=== PATIENT | female | born 1965 | race Caucasian/White ===

== ENCOUNTER → 2022-10-26 09:34 | Outpatient (CLI) | payer MEDICARE, MEDICAID, SELFPAY ==
[2022-10-26 15:39] LABS: Alanine Aminotransferase 316 U/L (12-78); Albumin Level 3.9 g/dl (3.5-5.0); Albumin/Globulin Ratio 1.6 (1.1-1.8); Alkaline Phosphatase 181 U/L (38-126); Anion Gap 7.2 mEq/L (5-15); Aspartate Amino Transferase 219 U/L (14-36); Bilirubin,Total 0.4 mg/dl (0.2-1.3); Blood Urea Nitrogen 6 mg/dl (7-17); Calcium 8.4 mg/dl (8.4-10.2); Carbon Dioxide 31 mmol/L (22.0-30.0); Chloride 105 mmol/L (98-107); Chol/HDL Ratio 3.1 (1-3.5); Cholesterol 140 mg/dl (140-200); Estimated Glomerular Filt Rate 129 ml/min (>60); GFR (African American) 156 ML/MIN (>60); Globulin 2.5 g/dL (1.3-3.2); Glucose 83 mg/dl (74-100); HDL Cholesterol 45 mg/dl (40-60); Potassium 4.2 mmoL/L (3.5-5.1); Sodium 139 mmol/L (136-145); Total Protein,Serum 6.4 g/dl (6.3-8.2); Triglycerides 125 mg/dl (30-150); VLDL Cholesterol 25 mg/dL (0-40)
[2022-10-26 15:50] LABS: Direct LDL Cholesterol 74.03 mg/dL (100-129)
[2022-10-26 16:10] LABS: Thyroid Stimulating Hormone 4.08 uIU/mL (0.465-4.68)
== END ==
PROVIDERS: PCP Family Medicine; Visit Provider Family Medicine
DX: F41.9 Anxiety disorder, unspecified; E66.01 Morbid (severe) obesity due to excess calories; Z68.42 Body mass index [BMI] 45.0-49.9, adult
CPT/HCPCS: 80053; 80061; 84443

== ENCOUNTER → 2022-11-04 07:55 | Outpatient (CLI) | payer MEDICARE, MEDICAID, SELFPAY ==
--- NOTE | 2022-11-04 07:56 | US_ITS ---
FINAL REPORT CLINICAL HISTORY: Elevated liver enzymes COMPARISON: None FINDINGS: Sonographic images of the right upper quadrant were obtained. The pancreas is partially obscured. There is increased hepatic echogenicity consistent with mild fatty infiltration. Hepatic veins are patent. Portal vein is patent with normal direction of flow and measures 12 mm in diameter. The gallbladder is surgically absent There is no evidence of biliary ductal dilatation.The common duct measures 3 mm. Limited images of the right kidney are unremarkable, measures 8.9 cm. IMPRESSION: Mild fatty liver. Reviewed, Interpreted and Dictated by Maciej Thomas III, MD Transcribed by Radha Bee Authenticated and [facility]
== END ==
PROVIDERS: PCP Family Medicine; Visit Provider Family Medicine
DX: R74.8 Abnormal levels of other serum enzymes (principal)
CPT/HCPCS: 76705

== ENCOUNTER → 2022-11-13 14:49 | Outpatient (CLI) | payer MEDICARE, MEDICAID, SELFPAY ==
[2022-11-15 08:10] LABS: HBsAg Screen Negative (Negative); Hep A Ab, IGM Negative (Negative); Hep B Core Ab, IgM Negative (Negative)
== END ==
PROVIDERS: PCP Family Medicine; Visit Provider Family Medicine
DX: R94.5 Abnormal results of liver function studies (principal)
CPT/HCPCS: 80074

== ENCOUNTER → 2023-02-12 23:15 | Outpatient (CLI) | payer MEDICARE, MEDICAID, SELFPAY ==
[2023-02-12 18:34] LABS: Basophils % 0.2 % (0.1-2.0); Eosinophils # 0.1 K/mm3 (0.0-0.4); Eosinophils % 1.2 % (0.1-12.0); Hematocrit 40.9 % (37.0-47.0); Lymphocytes # 1.4 K/mm3 (0.7-4.5); Lymphocytes % 22.6 % (10-50); Mean Corpuscular HGB Conc 31.8 g/dL (31.8-35.4); Mean Corpuscular Hemoglobin 29.4 pg (27.0-31.2); Mean Corpuscular Volume 92.3 fl (81-99); Mean Platelet Volume 8.6 fl (7.4-10.4); Monocytes # 0.5 K/mm3 (0.1-1.0); Monocytes % 7.6 % (1.7-9.3); Neutrophils # 4.2 K/mm3 (1.8-7.8); Neutrophils % 68.4 % (37.0-80.0); Platelet Count 239 K/mm3 (142-424); Red Blood Count 4.43 M/mm3 (4.20-5.40); Red Cell Distribution Width 14.4 % (11.5-17.5); White Blood Count 6.2 K/mm3 (4.8-10.8)
[2023-02-12 19:07] LABS: Alanine Aminotransferase 21 U/L (12-78); Albumin Level 4.1 g/dl (3.5-5.0); Albumin/Globulin Ratio 1.6 (1.1-1.8); Alkaline Phosphatase 111 U/L (38-126); Anion Gap 11.6 mEq/L (5-15); Aspartate Amino Transferase 29 U/L (14-36); Bilirubin,Total 0.2 mg/dl (0.2-1.3); Blood Urea Nitrogen 12 mg/dl (7-17); Carbon Dioxide 30 mmol/L (22.0-30.0); Chloride 106 mmol/L (98-107); Chol/HDL Ratio 2.8 (1-3.5); Cholesterol 145 mg/dl (140-200); Estimated Glomerular Filt Rate 104 ml/min (>60); GFR (African American) 126 ML/MIN (>60); Globulin 2.6 g/dL (1.3-3.2); Glucose 108 mg/dl (74-100); HDL Cholesterol 51 mg/dl (40-60); Potassium 3.6 mmoL/L (3.5-5.1); Sodium 144 mmol/L (136-145); Total Protein,Serum 6.7 g/dl (6.3-8.2); Triglycerides 132 mg/dl (30-150); VLDL Cholesterol 26 mg/dL (0-40)
[2023-02-12 19:18] LABS: Direct LDL Cholesterol 70.55 mg/dL (100-129)
[2023-02-12 19:53] LABS: Hemoglobin A1C 5.2 % (4.0-6.0)
== END ==
PROVIDERS: PCP Family Medicine; Visit Provider Family Medicine
DX: E11.9 Type 2 diabetes mellitus without complications (principal); F32.A Depression, unspecified; G89.29 Other chronic pain; M54.6 Pain in thoracic spine; E03.9 Hypothyroidism, unspecified
CPT/HCPCS: 80053; 80061; 83036; 85025

== ENCOUNTER → 2023-05-31 08:14 | Outpatient (CLI) | payer MEDICARE, MEDICAID, SELFPAY ==
[2023-05-31 21:13] LABS: Thyroid Stimulating Hormone 0.16 uIU/mL (0.465-4.68)
== END ==
PROVIDERS: PCP Family Medicine; Visit Provider Family Medicine
DX: F32.A Depression, unspecified (principal); F41.9 Anxiety disorder, unspecified
CPT/HCPCS: 84443

== ENCOUNTER → 2023-06-24 23:32 | Outpatient (CLI) | payer MEDICARE, MEDICAID, SELFPAY ==
[2023-06-24 21:45] LABS: Amphetamine/Metha Screen,Urine Negative ng/ml (<1000)
[2023-06-24 21:47] LABS: Cocaine Screen,Urine Negative ng/ml (<300)
[2023-06-24 21:48] LABS: Benzodiazepines Screen,Urine Negative ng/ml (<200)
[2023-06-24 21:49] LABS: Cannabinoid Screen,Urine Positive ng/ml (<50); Phencyclidine Screen,Urine Negative ng/ml (<25)
[2023-06-24 21:50] LABS: Methadone Screen,Urine Negative ng/ml (<300)
[2023-06-24 21:51] LABS: Opiate Screen,Urine Negative ng/ml (<300)
[2023-06-24 22:03] LABS: Barbiturates Screen,Urine Negative ng/ml (<200)
== END ==
PROVIDERS: PCP Family Medicine; Visit Provider Family Medicine
DX: Z79.899 Other long term (current) drug therapy (principal)
CPT/HCPCS: 80305

== ENCOUNTER 2024-01-27 13:47 | Outpatient (CLI) | payer MEDICARE, MEDICAID, SELFPAY ==
[2024-01-27 20:04] LABS: Creatinine,Urine Random 147 mg/dL (Not Estab.)
[2024-01-27 20:11] LABS: Microalbumin/Creatinine Ratio 7.8
== END 2024-01-27 23:59 | disposition home or self-care (01) ==
LOC: LAB.DROPOF 01-28 13:48
PROVIDERS: PCP Family Medicine; Visit Provider Family Medicine
DX: Z00.00 Encounter for general adult medical examination without abnormal findings (principal)
CPT/HCPCS: 82043; 82570

== ENCOUNTER 2024-03-29 13:45 | Outpatient (CLI) | payer MEDICARE, MEDICAID, SELFPAY ==
[2024-03-29 19:02] LABS: Alanine Aminotransferase 32 U/L (12-78); Albumin Level 3.7 g/dl (3.5-5.0); Albumin/Globulin Ratio 1.4 (1.1-1.8); Alkaline Phosphatase 118 U/L (38-126); Anion Gap 5.6 mEq/L (5-15); Aspartate Amino Transferase 28 U/L (14-36); Bilirubin,Total 0.5 mg/dl (0.2-1.3); Blood Urea Nitrogen 7 mg/dl (7-17); Calcium 8.9 mg/dl (8.4-10.2); Carbon Dioxide 31 mmol/L (22.0-30.0); Chloride 107 mmol/L (98-107); Estimated Glomerular Filt Rate 103 ml/min (>60); GFR (African American) 125 ML/MIN (>60); Globulin 2.7 g/dL (1.3-3.2); Glucose 96 mg/dl (74-100); Potassium 3.6 mmoL/L (3.5-5.1); Sodium 140 mmol/L (136-145); Total Protein,Serum 6.4 g/dl (6.3-8.2)
[2024-03-29 19:31] LABS: Thyroid Stimulating Hormone < 0.02 uIU/mL (0.465-4.68)
== END 2024-03-29 23:59 | disposition home or self-care (01) ==
LOC: LAB.DROPOF 03-30 10:00
PROVIDERS: PCP Family Medicine; Visit Provider Family Medicine
DX: E03.9 Hypothyroidism, unspecified (principal); E07.9 Disorder of thyroid, unspecified
CPT/HCPCS: 80053; 84443

== ENCOUNTER 2024-08-16 14:45 | Outpatient (CLI) | payer MEDICARE, MEDICAID, SELFPAY ==
[2024-08-16 18:36] LABS: Basophils % 0.2 % (0.1-2.0); Eosinophils # 0.1 K/mm3 (0.0-0.4); Eosinophils % 1.2 % (0.1-12.0); Hematocrit 48.1 % (37.0-47.0); Hemoglobin 15.6 g/dL (12.2-16.2); Lymphocytes # 1.5 K/mm3 (0.7-4.5); Lymphocytes % 29.8 % (10-50); Mean Corpuscular HGB Conc 32.4 g/dL (31.8-35.4); Mean Corpuscular Hemoglobin 30.4 pg (27.0-31.2); Mean Corpuscular Volume 93.8 fl (81-99); Mean Platelet Volume 10.2 fl (7.4-10.4); Monocytes # 0.4 K/mm3 (0.1-1.0); Monocytes % 7.3 % (1.7-9.3); Neutrophils # 3.1 K/mm3 (1.8-7.8); Neutrophils % 61.3 % (37.0-80.0); Platelet Count 226 K/mm3 (142-424); Red Blood Count 5.13 M/mm3 (4.20-5.40); Red Cell Distribution Width 13.8 % (11.5-17.5); White Blood Count 5.1 K/mm3 (4.8-10.8)
[2024-08-16 19:25] LABS: Alanine Aminotransferase 27 U/L (12-78); Albumin Level 4.4 g/dl (3.5-5.0); Alkaline Phosphatase 113 U/L (38-126); Anion Gap 12.6 mEq/L (5-15); Aspartate Amino Transferase 33 U/L (14-36); Bilirubin,Total 0.3 mg/dl (0.2-1.3); Blood Urea Nitrogen 10 mg/dl (7-17); Calcium 9.2 mg/dl (8.4-10.2); Carbon Dioxide 31 mmol/L (22.0-30.0); Chloride 104 mmol/L (98-107); Chol/HDL Ratio 4.1 (1-3.5); Cholesterol 179 mg/dl (140-200); Estimated Glomerular Filt Rate 87 ml/min (>60); GFR (African American) 105 ML/MIN (>60); Globulin 2.2 g/dL (1.3-3.2); Glucose 82 mg/dl (74-100); HDL Cholesterol 44 mg/dl (40-60); Potassium 3.6 mmoL/L (3.5-5.1); Sodium 144 mmol/L (136-145); Total Protein,Serum 6.6 g/dl (6.3-8.2); Triglycerides 152 mg/dl (30-150); VLDL Cholesterol 30 mg/dL (0-40)
[2024-08-16 19:38] LABS: Direct LDL Cholesterol 87.08 mg/dL (100-129)
[2024-08-16 19:45] LABS: T4 (Thyroxine) 9.9 ug/dl (5.53-11.0)
[2024-08-16 19:58] LABS: Thyroid Stimulating Hormone 0.56 uIU/mL (0.465-4.68)
[2024-08-16 20:06] LABS: HIV Combo NEGATIVE (Negative)
[2024-08-16 20:18] LABS: Hepatitis C Ab Qual. W/ RFX NEGATIVE (Negative)
== END 2024-08-16 23:59 | disposition home or self-care (01) ==
LOC: LAB.DROPOF 08-17 13:29
PROVIDERS: PCP Family Medicine; Visit Provider Family Medicine
DX: E03.9 Hypothyroidism, unspecified (principal); M15.4 Erosive (osteo)arthritis; M79.671 Pain in right foot; M79.672 Pain in left foot; F32.A Depression, unspecified; F41.9 Anxiety disorder, unspecified; E66.01 Morbid (severe) obesity due to excess calories; Z68.42 Body mass index [BMI] 45.0-49.9, adult; M54.6 Pain in thoracic spine; G89.29 Other chronic pain; Z87.19 Personal history of other diseases of the digestive system; Z90.710 Acquired absence of both cervix and uterus; Z11.59 Encounter for screening for other viral diseases
CPT/HCPCS: 80053; 80061; 84436; 84443; 85025; 86803; 87389

== ENCOUNTER 2025-02-14 14:25 | Outpatient (CLI) | payer MEDICARE, MEDICAID, SELFPAY ==
[2025-02-14 20:33] LABS: Thyroid Stimulating Hormone 0.38 uIU/mL (0.465-4.68)
--- OUTSIDE RECORDS SUMMARY | 2025-02-15 12:17 | XMS_ITS | Clinical Summary ---
Author Organization [facility] [place] Address [address] [facility] [address] [place] [address] Phone Care Team Providers Care Correctional Substance Abuse Counselor Name Role Phone Vahid Pelaez MD Primary Care Provider [phone] Allergies Active Allergy Reactions Criticality Noted Date Comments Hydrocodone-Acetaminophen Nausea And Vomiting 1 08/25/2010 Medications lorazepam (ATIVAN) 1 mg tablet Take 1 mg by mouth daily. Active LEVOthyroxine 75 mcg Oral Capsule Take 125 mcg by mouth daily. Active MULTIVITAMIN/IRO N/FOLIC ACID (MULTI COMPLETE WITH IRON ORAL) Take 2 Tabs by mouth daily. Active calcium carbonate (OS-GINO) 500 mg calcium (1,250 mg) Oral Tablet Take 1 Tab by mouth 2 times daily. Active cyanocobalamin 500 mcg Oral Tablet Take 500 mcg by mouth daily. Active vits A,C,E/lutein/min erals (HEALTHY EYES ORAL) Take 1 Tab by mouth daily. Active busPIRone (BUSPAR) 15 mg Oral Tablet Take 15 mg by mouth 3 times daily. 0 Active Cholecalciferol, Vitamin D3, 25 mcg (1,000 unit) Oral Capsule Take by mouth daily. Active oxyCODONE (ROXICODONE) 5 mg Oral Tablet Take 1-2 tablets by mouth every 6-8 hours as needed 30 Tab 09/17/2020 12:28 PM EST 1 Active Additional Information Patient not taking.Reason: Pt electing to not take the medication, Reported on 02/17/2021 oxyCODONE-acetam inophen (PERCOCET) 10-325 mg Oral Tablet Take 1 Tab by mouth every 12 hours as needed. Active ascorbic acid (VITAMIN C ORAL) Take by mouth daily. Active ZINC ORAL Take by mouth daily. Active pioglitazone (ACTOS) 15 mg Oral Tablet 4 Active VRAYLAR 3 mg Oral Capsule 4 Active desvenlafaxine succinate (PRISTIQ) 100 mg Oral Tablet Sustained Release 24 hr 4 Active MAGNESIUM ORAL Take by mouth. Active LYSINE, BULK, MISC by Misc.(Non-Drug; Combo Route) route. Active omeprazole (PRILOSEC) 40 mg Oral Capsule, Delayed Release(E.C.)Ind ications:Gastroe sophageal reflux disease without esophagitis Take 1 Capsule by mouth daily. Take 30 mins before breakfast 90 Capsule 3 4 Active Active Problems Problem Noted Date Diagnosed Date Hx of diverticulitis of colon 04/24/2024 Screening for colon cancer 04/24/2024 Hx of total knee replacement, right 06/03/2021 Hx of total knee replacement, left 06/03/2021 Fatigue 10/02/2020 Melena 10/02/2020 Right knee pain 09/04/2020 Acute diverticulitis 06/26/2020 Morbid obesity 04/29/2017 History of gastric bypass 04/08/2017 Major depressive disorder, r ecurrent episode, in partial remission 05/11/2016 Gastrointestinal hemorrhage associated with bhanu lorena ulcer 02/14/2016 Incarcerated ventral hernia 12/04/2013 Overview (12/04/2013): 12/04/13: -Causing SBO -Surgery History of gastric ulcer 12/04/2013 Overview (12/04/2013): 12/04/13 -maintained on sucralfate and nexium S/P repair of ventral hernia 12/04/2013 Chronic back pain 12/03/2013 Overview (12/04/2013): 12/04/13 - maintained on Flexeril and Oxycodone Hypothyroid 12/03/2013 Overview (12/04/2013): 12/04/13 - Maintained on synthroid Anxiety 12/03/2013 Overview (12/04/2013): 12/04/13 - maintained on a regimine of ativan Mood disorder 12/03/2013 Overview (12/04/2013): 12/04/13 - maintained on Prozac Former smoker 12/03/2013 Gastroesophageal reflux disease without esophagi tis 12/03/2013 History of bleeding ulcers 12/03/2013 History of [place] (myocardial infarction) 12/03/2013 Hematemesis 08/10/2013 Hypokalemia 08/10/2013 Esophagitis 08/10/2013 Complication of gastric stapling 08/10/2013 Back pain 05/10/2012 Hematemesis with nausea Hypothyroidism H. pylori infection Hypoxia Resolved Problems Problem Noted Date Diagnosed Date Resolved Date BMI 50.0-59.9, adult 05/08/2016 017 Morbid obesity due to excess calories 04/09/2016 03/19/2017 Morbid obesity with BMI of 45.0-49.9, adult 12/04/2013 04/29/2017 Small bowel obstruction 12/03/2013 08/0 11/2015 Overview (12/04/2013): 12/04/13: Reduction and repair of incarcerated ventral hernia with Strattice graft, small bowel resection H/O gastric bypass 08/10/2013 4 Immunizations Immunization Administration Dates Next Due Pneumococcal Polysaccharide 23 Valent 12/05/2013 Tdap 12/05/2013 Surgical History Surgery Date Site/Laterality Comments SECTION HYSTERECTOMY CHOLECYSTECTOMY UPPER GASTROINTESTINAL ENDOSCOPY 08/10/2013 N/A ESOPHAGOGASTRODUODENOSC OPY with balloon dilation; Surgeon: Bobby Castillo DO; Location: [facility]; Service: Endoscopy UPPER GASTROINTESTINAL ENDOSCOPY 10/10/2013 N/A ESOPHAGOGASTRODUODENOSC OPY ; Surgeon: Bobby Castillo DO; Location: [facility]; Service: Endoscopy VENTRAL HERNIA REPAIR 12/04/2013 Abdomen/N/A Reduction and repair of ventral hernia with strattice mesh. Small bowel resection; Surgeon: Daisy Rodgers MD; Location: [facility]; Service: General Medical devices from this surgery are in the Medical Devices section. COLON SURGERY 12/04/2013 Surgeon: Daisy Rodgers MD; Location: [facility]; Service: General Medical devices from this surgery are in the Medical Devices section. UPPER GASTROINTESTINAL ENDOSCOPY 02/17/2016 N/A ESOPHAGOGASTRODUODENOSC OPY with biopsy; Surgeon: Bobby Castillo DO; Location: [facility]; Service: Endoscopy UPPER GASTROINTESTINAL ENDOSCOPY 11/10/2016 N/A ESOPHAGOGASTRODUODENOSC OPY with biopsy; Surgeon: Bobby Castillo DO; Location: [facility]; Service: Endoscopy VENTRAL HERNIA REPAIR 03/22/2017 Abdomen/N/ A Surgeon: Branden Son MD; Location: [facility] MAIN OR; Service: General TOTAL KNEE ARTHROPLASTY 05/29/2020 Knee/Left LEFT TOTAL KNEE ARTHROPLASTY; Surgeon: Eduardo Bardales MD; Location: [facility]; Service: Orthopedics Medical devices from this surgery are in the Medical Devices section. JOINT REPLACEMENT 05/29/2020 GASTRIC RESTRICTION SURGERY 07/12/1996 - 07/11/1997 SPENT 5 DAYS ON VENTILATOR POST-OP-NOT SURE WHY GASTRIC BYPASS SURGERY 03/22/2017 Abdomen/N/A revision of gastric bypass and repair of ventral hernia ; Surgeon: Branden Son MD; Location: [facility] MAIN OR; Service: General TOTAL KNEE ARTHROPLASTY 09/04/2020 Right RIGHT TOTAL KNEE ARTHROPLASTY; Surgeon: Eduardo Bardales MD; Location: [facility]; Service: Orthopedics Medical devices from this surgery are in the Medical Devices section. UPPER GASTROINTESTINAL ENDOSCOPY 10/04/2020 N/A ESOPHAGOGASTRODUODENOSC OPY with biopsy; Surgeon: Bobby Stockton MD; Location: [facility] END[facility]COPY; Service: Endoscopy COLONOSCOPY 10/05/2020 N/A COLONOSCOPY ; Surgeon: Michel Montoya MD; Location: [facility] END[facility]COPY; Service: Endoscopy Medical History Medical History Date Comments Anemia Low potassium syndrome resolved Depression Anxiety Bleeding ulcer GERD (gastroesophageal reflux disease) Encounter for blood transfusion questionable, not sure if she had one Thyroid disease Acute [place] (HCC) 1996? Arthritis Hypertension in the past Urinary tract infection Spinal headache Wears glasses Full dentures Anesthesia complication had trou ble breathing on her own after surgery and ended up on ventilator - 1996 Family History Medical History Relation Name Comments Colon Polyps Father Diabetes Maternal Grandfather High Blood Pressure Mother Cancer Paternal Grandfather Colon Cancer Paternal Grandfather Diabetes Paternal Grandmother Heart Disease Paternal Grandmother Anesth Problems Neg Hx Esophageal Cancer Neg Hx Liver Cancer Neg Hx Liver Disease Neg Hx Rectal Cancer Neg Hx Stomach Cancer Neg Hx Relation Name Status Comments Father Maternal Grandfather Mother Paternal Grandfather Paternal Grandmother Social History Tobacco Use Types Packs/Day Years Used Date Smoking Tobacco: Former Cigarettes 3 13.7 0 07/12/1988 - 03/10/2002 Smokeless Tobacco: Never Tobacco Cessation:Counseling Given: Not Answered Alcohol Use Standard Drinks/Week Comments Yes 0 (1 standard drink = 0.6 oz pur e alcohol) occ Comments No Sex and Gender Information Value Date Recorded Sex Assigned at Not on file Legal Sex Female 5:47 PM EDT Gender Identity Not on file Sexual Orientation Not on file Obstetrics History Last Filed Vital Signs Vital Sign Reading Time Taken Comments Blood Pressure 112/85 04/24/2024 12:25 PM EDT Pulse 71 04/24/2024 12:25 PM EDT Temperature 36.5 C (97.7 F) 11/24/2023 6:26 PM EDT Respiratory Rate 16 04/24/2024 12:25 PM EDT Oxygen Saturation 96% 11/24/2023 9:33 PM EDT Inhaled Oxygen Concentration - - Weight 122.5 kg (270 lb) 04/24/2024 12:25 PM EDT Height 160 cm (5' 3 ) 04/24/2024 12:25 PM EDT Body Mass Index 47.83 04/24/2024 12:25 PM EDT Plan of Treatment Health Maintenance Due Date Last Done Comments Wellness Exam Medicare 12/07/1970 Hepatitis B Vaccine (1 of 3 - 19+ 3-dose series) 12/07/1986 Cervical Cancer Screening 12/07/1988 Pap Smear 12/07/1988 HPV/Pap Cotest 12/07/1997 Breast Cancer Screening 2007 Cologuard 12/07/2012 FIT 12/07/2012 Sigmoidoscopy 12/07/2012 Virtual Colonography 12/07/2012 Pneumococcal Vaccine 50+ (2 of 2 - PCV) 12/07/2017 12/05/2013 Zoster (1 of 2) 12/07/2017 DTaP/TDaP/Td (2 - Td or Tdap) 12/06/2023 12/05/2013 COVID-19 Vaccine (2023-2 5 season) 2024 05/26/2021, 10/09/2020, 09/11/2020 Influenza Vaccine (#1) 2025 Colon Cancer Screening 10/05/2030 Colonoscopy 10/05/2030 10/05/2020, 04/16/2011 Meningococcal B Vaccine Aged Out No l onger eligible based on patient's age to complete this topic Medical Devices Implanted Type Area Metal Control Worker Device Identifier Shelf Expiration Date Model / Serial / Lot Matrix Tissue Strattice 6cm X 10cm Stoma - [id number] Implanted:Qty: 60 on 12/04/2013 by Daisy Rodgers MD at [facility] N/A: Abdomen LIFECELL 06/10/2015 [id number] / / [id number] Cement Bn Simplex Hv 20ml 40gm Radiopaque Strl - [id number] Implanted:Qty: 2 on 05/29/2020 by Eduardo Bardales MD at [facility] Left: Knee EVANGELINA:ORTHOPE DICS [id number] 06/10/2021 6194-1-01 0 / / [id number] A Gmk Tibial Tray Cemented Left S3 - [id number] Implanted:Qty: 1 on 05/29/2020 by Eduardo Bardales MD at [facility] Left: Knee MEDACTA [id number] 01/17/2025 02.07.120 3L / / [id number] Sphere Femur Cemented Left S3 - [id number] Implanted:Qty: 1 on 05/29/2020 by Eduardo Bardales MD at [facility] Left: Knee MEDACTA [id number] 01/02/2025 02.12.000 3L / / [id number] Patella Resurfacing S2 - [id number] Implanted:Qty: 1 on 05/29/2020 by Eduardo Bardalse MD at [facility] Left: Knee MEDACTA [id number] 12/10/2024 02.07.003 4RP / / Ins Tib 3 13mm Lt Sphr Cngrnt Gmk - [id number] Implanted:Qty: 1 on 05/29/2020 by Eduardo Bardales MD at [facility] Left: Knee MEDACTA [id number] 06/20/2023 02.12.031 3CRL / / [id number] Gmk Tibial Tray Cemented Right S3 - [id number] Implanted:Qty: 1 on 09/04/2020 by Eduardo Bardales MD at [facility] Right: Knee MEDACTA [id number] 04/04/2025 02.07.120 3R / / [id number] Ins Tib 3 13mm Rt Sphr Cngrnt Gmk - [id number] Implanted:Qty: 1 on 09/04/2020 by Eduardo Bardales MD at [facility] Right: Knee MEDACTA [id number] 11/14/2023 02.12.031 3CRR / / [id number] Cement Symplex Hv 20ml 40gm 75% Mma Styr 15% Pmma Baso4 - [id number] Implanted:Qty: 2 on 09/04/2020 by Eduardo Bardales MD at [facility] Right: Knee EVANGELINA:ORTHOPE DICS 10/09/2021 6194-1-01 0 / / [id number] Patella Resurfacing S2 - [id number] Implanted:Qty: 1 on 09/04/2020 by Eduardo Bardales MD at [facility] Right: Knee MEDACTA [id number] 03/20/2025 02.07.003 4RP / / [id number] Sphere Femur Cemented Right S3 - [id number] Implanted:Qty: 1 on 09/04/2020 by Eduardo Bardales MD at [facility] Right: Knee MEDACTA [id number] 02/27/2024 02.12.000 3R / / [id number] Procedures Procedure Name Priority Date/Time Associated Diagnosis Comments [facility]ED COLONOSCOPY Routine 10/05/2020 10:4 5 AM EDT from Last 3 Months or Most Recently Relevant to Health Maintenance Results * [facility] COLONOSCOPY (10/05/2020 10:45 AM EDT) 10/05/2020 10:4 5 AM EDT Impressions [facility] - 10/05/2020 12:56 PM EDT Normal mucosa in the whole colon. Plan: Resume all usual medications No obvious lesions to explain melena If persists, consider sbft and capsule endoscopy as outpatient. If tolerates diet, ok for d/c home from GI perspective if CBC ok. Repeating cbc today. This section is an excerpt of the full report. us Michel Montoya MD GI PROCEDURE ORDERABLE S Final Result [facility] [address] [place] [address] from Last 3 Months or Most Recently Relevant to Health Maintenance Insurance [address] [address] MEDICARE PPO [facility] MEDICARE PPO MR #[id number] MEDICARE PPO MR [employer] MEDICARE PPO MR [employer] MEDICARE PPO MR [employer] MEDICARE PPO MR Advance Directives For more information, please contact: [phone] Documents on File Type Date Recorded Patient Coroner/Medical Examiner Expl anation Advance Directives/DNR 03/30/2017 11:25 AM 03/22/17 * Full Code (Latest Code Status on File) Date Activated Date Inactivated Comments 10/05/2020 3:32 PM 10/05/2020 8:50 PM * Full Code Date Activated Date Inactivated Comments 06/26/2020 1:46 AM 06/27/2020 6:15 PM * Full Code Date Activated Date Inactivated Comments 03/22/2017 5:26 PM 03/28/2017 7:42 PM * Full Code Date Activated Date Inactivated Comments 02/14/2016 2:42 PM 02/18/2016 4:05 PM * Full Code Date Activated Date Inactivated Comments 12/03/2013 10:26 PM 2013 3:41 PM Care Teams Correctional Substance Abuse Counselor Relationship Specialty Start Date End Date Vahid Pelaez MD PCP - General 03/10/11
== END 2025-02-14 23:59 | disposition home or self-care (01) ==
LOC: LAB.DROPOF 02-15 12:15
PROVIDERS: PCP Family Medicine; Visit Provider Family Medicine
DX: E03.9 Hypothyroidism, unspecified (principal)
CPT/HCPCS: 84443

== ENCOUNTER 2025-06-06 10:53 | Outpatient (CLI) | payer MEDICARE, MEDICAID, SELFPAY ==
[2025-06-06 20:18] LABS: Hematocrit 40.8 % (37.0-47.0); Hemoglobin 13.6 g/dL (12.2-16.2); Immature Granulocytes % 0.7 %; Mean Corpuscular HGB Conc 33.3 g/dL (31.8-35.4); Mean Corpuscular Hemoglobin 31.1 pg (27.0-31.2); Mean Corpuscular Volume 93.2 fl (81-99); Nucleated Red Blood Cells % 0 %; Platelet Count 173 K/mm3 (142-424); Red Blood Count 4.38 M/mm3 (4.20-5.40); Red Cell Distribution Width-SD 44.8 fL; White Blood Count 4.3 K/mm3 (4.8-10.8)
[2025-06-06 20:39] LABS: Albumin Level 3.4 g/dl (3.5-5.0); Chloride 98 mmol/L (98-107); Potassium 3.8 mmoL/L (3.5-5.1); Sodium 141 mmol/L (136-145)
[2025-06-06 20:42] LABS: Alanine Aminotransferase 93 U/L (12-78); Albumin/Globulin Ratio 1.2 (1.1-1.8); Alkaline Phosphatase 135 U/L (38-126); Anion Gap 13.8 mEq/L (5-15); Aspartate Amino Transferase 41 U/L (14-36); Bilirubin,Total 0.5 mg/dl (0.2-1.3); Blood Urea Nitrogen 11 mg/dl (7-17); Calcium 8.6 mg/dl (8.4-10.2); Carbon Dioxide 33 mmol/L (22.0-30.0); Creatinine,Serum 0.70 mg/dl (0.52-1.04); Estimated Glomerular Filt Rate 86 ml/min (>60); GFR (African American) 104 ML/MIN (>60); Globulin 2.8 g/dL (1.3-3.2); Glucose 98 mg/dl (74-100); Total Protein,Serum 6.2 g/dl (6.3-8.2)
[2025-06-06 20:43] LABS: Magnesium 2.4 mg/dl (1.6-2.3)
[2025-06-06 20:59] LABS: T4 (Thyroxine) 9.3 ug/dl (5.53-11.0)
[2025-06-06 21:12] LABS: Thyroid Stimulating Hormone 0.75 uIU/mL (0.465-4.68)
--- OUTSIDE RECORDS SUMMARY | 2025-06-11 11:43 | XMS_ITS | Clinical Summary ---
Author Organization [facility] [place] Address [address] [place] [address] Phone Care Team Providers Care Tandem Mill Roller Name Role Phone Vahid Pelaez MD Primary Care Provider [phone] Allergies Active Allergy Reactions Criticality Noted Date [...] History of bleeding ulcers 12/03/2013 History of [place] (myocardial infarction) 12/03/2013 Hematemesis 08/10/2013 Hypokalemia 08/10/2013 [...] Abdomen/N/ A Surgeon: Branden Son MD; Location: [facility] MA[facility] OR; Service: General TOTAL KNEE ARTHROPLASTY [...] hernia ; Surgeon: Branden Son MD; Location: [facility] OR; Service: General TOTAL KNEE ARTHROPLASTY 09/04/2020 Right RIGHT TOTAL KNEE ARTHROPLASTY; Surgeon: Eduardo Bardales MD; Location: [facility]; Service: Orthopedics Medical devices from this surgery are in the Medical Devices section. UPPER GASTROINTESTINAL ENDOSCOPY 10/04/2020 N/A ESOPHAGOGASTRODUODENOSC OPY with biopsy; Surgeon: Bobby Stockton MD; Location: [facility] ENDOSCOPY; Service: Endoscopy COLONOSCOPY 10/05/2020 N/A COLONOSCOPY ; Surgeon: Michel Montoya MD; Location: [facility] ENDOSCOPY; Service: Endoscopy Medical History Medical History Date Comments Anemia Low potassium syndrome resolved Depression Anxiety Bleeding ulcer GERD (gastroesophageal reflux disease) Encounter for blood transfusion questionable, not sure if she had one Thyroid disease Acute [place] (HCC) 1996? Arthritis Hypertension in the past [...] on file Sexual Orientation Not on file Last Filed Vital Signs Vital Sign Reading [...] Td or Tdap) 12/06/2023 12/05/2013 COVID-19 Vaccine (4 - 2024-2 6 season) 2025 05/26/2021, 10/09/2020, 09/11/2020 Influenza Vaccine (#1) 2025 Colon Cancer Screening 10/05/2030 Colonoscopy 10/05/2030 10/05/2020, 04/16/2011 Meningococcal B Vaccine Aged Out No l onger eligible based on patient's age to complete this topic Medical Devices Implanted Type Area Film Sound Engineer Device Identifier Shelf Expiration Date Model / Serial / Lot Matrix Tissue Strattice 6cm X 10cm Stoma - [id number] Implanted:Qty: 60 on 12/04/2013 by Daisy Rodgers MD at [facility] N/A: Abdomen LIFECELL 06/10/2015 [id number] / / [id number] Cement Bn Simplex Hv 20ml 40gm Radiopaque Strl - [id number] Implanted:Qty: 2 on 05/29/2020 by Eduardo Bardales MD at [facility] Left: Knee EVANGELINA:ORTHOPE DICS [id number] 06/10/2021 6194-1-01 0 / / [id number] A Gmk Tibial Tray Cemented Left S3 - [id number] Implanted:Qty: 1 on 05/29/2020 by Eduardo Bardales MD at [facility] Left: Knee MEDACTA [id number] 01/17/2025 02.07.120 3L / / [id number] Sphere Femur Cemented Left S3 - [id number] Implanted:Qty: 1 on 05/29/2020 by Eduardo Bardales MD at [facility] Left: Knee MEDACTA [id number] 01/02/2025 02.12.000 3L / / [id number] Patella Resurfacing S2 - [id number] Implanted:Qty: 1 on 05/29/2020 by Eduardo Bardales MD at [facility] Left: Knee MEDACTA [id number] 12/10/2024 02.07.003 4RP / / Ins Tib 3 13mm Lt Sphr Cngrnt Gmk - [id number] Implanted:Qty: 1 on 05/29/2020 by Eduardo Bardales MD at [facility] Left: Knee MEDACTA [id number] 06/20/2023 02.12.031 3CRL / / [id number] Gmk Tibial Tray Cemented Right S3 - [id number] Implanted:Qty: 1 on 09/04/2020 by Eduardo Bardales MD at [facility] Right: Knee MEDACTA [id number] 04/04/2025 02.07.120 3R / / [id number] Ins Tib 3 13mm Rt Sphr Cngrnt Gmk - [id number] Implanted:Qty: 1 on 09/04/2020 by Eduardo Bardales MD at [facility] Right: Knee MEDACTA [id number] 11/14/2023 02.12.031 3CRR / / [id number] Cement Symplex Hv 20ml 40gm 75% Mma Styr 15% Pmma Baso4 - [id number] Implanted:Qty: 2 on 09/04/2020 by Eduardo Bardales MD at [facility] Right: Knee EVANGELINA:ORTHOPE DICS 10/09/2021 6194-1-01 0 / / [id number] Patella Resurfacing S2 - [id number] Implanted:Qty: 1 on 09/04/2020 by Eduardo Bardales MD at [facility] Right: Knee MEDACTA [id number] 03/20/2025 02.07.003 4RP / / [id number] Sphere Femur Cemented Right S3 - [id number] Implanted:Qty: 1 on 09/04/2020 by Eduardo Bardales MD at [facility] Right: Knee MEDACTA [id number] 02/27/2024 02.12.000 3R / / [id number] Procedures Procedure Name Priority Date/Time Associated Diagnosis Comments GMED COLONOSCOPY Routine 10/05/2020 10:4 5 AM EDT from Last 3 Months or Most Recently Relevant to Health Maintenance Results * GMED COLONOSCOPY (10/05/2020 10:45 AM EDT) 10/05/2020 10:4 5 AM EDT Impressions [facility] - 10/05/2020 12:56 PM EDT Normal [...] MD GI PROCEDURE ORDERABLE S Final Result [facility] [address] [place] [address] from Last 3 Months or Most Recently Relevant to Health Maintenance Insurance [employer] MEDICARE PPO MR [facility] MEDICARE PPO MR [address] [place] [address] [employer] MEDICARE PPO MR [employer] MEDICARE PPO MR [employer] MEDICARE PPO MR [employer] MEDICARE PPO MR Advance Directives For more information, please contact: [phone] Documents on File Type Date Recorded Patient Manager System Expl anation Advance Directives/DNR 03/30/2017 11:25 AM [...] 10:26 PM 2013 3:41 PM Care Teams Tandem Mill Roller Relationship Specialty Start Date End Date Vahid Pelaez MD PCP - General 03/10/11
== END 2025-06-06 23:59 ==
LOC: LAB.DROPOF 06-11 10:53
PROVIDERS: PCP Family Medicine; Visit Provider Family Medicine
DX: E03.9 Hypothyroidism, unspecified (principal); M54.6 Pain in thoracic spine; G89.29 Other chronic pain; K57.92 Diverticulitis of intestine, part unspecified, without perforation or abscess without bleeding
CPT/HCPCS: 80053; 83735; 84436; 84443; 85025